=== PATIENT | male | born 1940 | race Caucasian/White ===

== ENCOUNTER 2018-04-14 05:43 | Inpatient (IN) | payer MEDICARE, OTHER ==
--- NOTE | 2018-04-01 13:47 | HP ---
HISTORY AND PHYSICAL: DATE OF ADMISSION: 04/14/18 He is coming into [facility] 04/14/18 for a left total knee replacement. CHIEF COMPLAINT: Left knee region pain and deformity. HISTORY OF PRESENT ILLNESS: The patient has had severe arthritis of the left knee for the past year and he has tried antiinflammatory medication, injection and bracing. He has been unable to be on the tennis court where he likes to be and his walking distance is less than one to two blocks. He is having difficulty with stairs and needs to use a banister and is going one at a time and his knee wakens him sometime from his sleep. The plan is for left total knee replacement. PAST MEDICAL HISTORY: 1. He has had hay fever. 2. He has never had any cancers. 3. Hypertension. 4. Mitral valve prolapse. 5. Asthma, which is not currently active. 6. The patient has early Alzheimer disease. 7. He has had some history of depression. 8. He has had skin cancers. PAST SURGICAL HISTORY: 1. Tonsillectomy. 2. Hemorrhoidectomy. 3. Ear drum surgery. 4. Appendectomy. DAILY MEDICATIONS: 1. Losartan 50 mg. 2. Hydrochlorothiazide 20 mg. 3. Low dose aspirin 81 mg. 4. Vitamin B12. 5. Herbal supplements for Alzheimer's. ALLERGIES: He is allergic to SULFA drugs, I believe he is okay Ancef. The patient has had allergy X-RAY CONTRAST MATERIAL as well. FAMILY HISTORY: Alzheimer's. SOCIAL HISTORY: He stopped smoking at age 30. Drinking, he has one glass of wine or scotch five days weekly. REVIEW OF SYSTEMS: Negative for phlebitis and pulmonary embolism. No history of fibrillation. No chest pain. No weight loss. No weakness. PHYSICAL EXAMINATION VITAL SIGNS: 68 inches in height, 188 pounds, temperature 97.8, pulse 52, blood pressure 112/76. HEENT: The head is NC/AT. LUNGS: Clear bilaterally. HEART: The heart is regular. S1, S2 normal. No murmurs or gallops. ABDOMEN: Soft and nontender, there is no organomegaly. EXTREMITIES: Walking gait shows varus of the left knee and a lateral thrust with weightbearing on the left. The left knee extension is 0, flexion is to a 6 inch heel buttock distance and on the right, his heel does go to the buttock. The left knee further has small effusion, stable MCL, LCL, Shanell and posterior drawer. The medial joint line has some tenderness, nontender anteriorly, laterally and posteriorly. MCL and LCL are stable. The thigh and calf are soft. The left dorsalis pedis pulse is 2+. No swelling of the left leg , ankle and foot. He does an easy leg raise on the left. NEUROLOGIC: Cranial nerves are grossly intact. IMAGING: X-ray of the left knee shows severe arthritis in the medial compartment with bone on bone, lateral joint widening and sclerosis in the medial compartment as well. IMPRESSION: Severe arthritis of the left knee. PLAN/RECOMMENDATIONS: Left total knee replacement. [id number]/[facility] #: [id number] MTDD
[~2018-04-14 05:43] MED LIST: Buffered Lidocaine 0.9% SYRIN* 5 ML/SYR SYRINGE INTRADERM ONE; Tranexamic Acid 1,000 MG in NS 0.9% 50 ML* (outpatient use) IV SCH
[2018-04-14] MEDS ORDERED: Famotidine IV* 10 MG/ML 2 ML (20 mg) IV ONE (06:00)
[2018-04-14] MEDS ORDERED: Acetaminophen TAB* 325 MG PO ONE (06:00)
[2018-04-14] MEDS ORDERED: Bupivacaine 0.5% W/EPI SDV* 30 ML VIAL ONE (06:49)
[2018-04-14] MEDS ORDERED: Acetaminophen TAB* 325 MG ONE (06:49)
[2018-04-14] MEDS ORDERED: Famotidine IV* 10 MG/ML 2 ML (20 mg) ONE (06:49)
[2018-04-14] MEDS ORDERED: Tranexamic Acid 1,000 MG/10 ML SDV IV ONE (06:50)
[2018-04-14] MEDS ORDERED: ceFAZolin 2 GM PREMIX in ORs 2 GM/50 ML BAG IVPB ONE (06:50)
[2018-04-14] MEDS ORDERED: Lidocaine 2% PF * 5 ML VIAL ONE ×2 (07:00→08:09)
[2018-04-14] MEDS ORDERED: Propofol* 10 MG/ML 20 ML BTL IV PUSH ONE ×2 (07:00→08:11)
[2018-04-14] MEDS ORDERED: Dexamethasone IV* 4 MG/ML 1 ML (4 MG) ONE (07:00)
[2018-04-14] MEDS ORDERED: Ondansetron INJ* 2 MG/ML VIAL ONE (07:00)
[2018-04-14] MEDS ORDERED: ROPIVACAINE 5 MG/ML 30 ML BTL (0.5%) ONE (07:00)
[2018-04-14] MEDS ORDERED: fentaNYL* 50 MCG/ML 2 ML VIAL (100 MCG VIAL) ONE (07:00)
[2018-04-14] MEDS ORDERED: Ketorolac INJ* 30 MG/ML 1 ML VIAL ONE (07:00)
[2018-04-14] MEDS ORDERED: Midazolam* 1 MG/ML 10 ML VIAL (10 MG) ONE (07:00)
[2018-04-14] MEDS ORDERED: Phenylephrine INJ* 10 MG/ML 1 ML VIAL (10 MG) ONE (07:00)
[2018-04-14] MEDS ORDERED: KETAMINE HCL* 50 MG/ML 10 ML VIAL ONE (07:00)
[2018-04-14] MEDS ORDERED: Bupivacaine 0.5% SDV PF* 30ML VIAL ONE (07:52)
[2018-04-14] MEDS ORDERED: Glycopyrrolate IV* 0.2 MG/ML 1 ML VIAL ONE (08:31)
[2018-04-14] MEDS ORDERED: Naloxone* 0.4 MG/ML 1 ML VIAL IV PRN (09:46)
[2018-04-14] MEDS ORDERED: Ondansetron INJ* 2 MG/ML VIAL IV PRN ×2 (09:46→10:47)
[2018-04-14] MEDS ORDERED: fentaNYL* 50 MCG/ML 2 ML VIAL (100 MCG VIAL) IV PRN (09:46)
[2018-04-14] MEDS ORDERED: Ondansetron ODT TAB* 4 MG PO PRN (10:47)
[2018-04-14] MEDS ORDERED: traZODone TAB* 50 MG TAB PO PRN (10:47)
[2018-04-14] MEDS ORDERED: Morphine VIAL* 4 MG/ML VIAL (1 ml vial) IV PRN (10:47)
[2018-04-14] MEDS ORDERED: diPHENhydraMINE IV* 50 MG/ML 1 ml VIAL (BENADRYL) IV PRN (10:47)
[2018-04-14] MEDS ORDERED: Cyclobenzaprine TAB* 10 MG PO PRN (10:47)
[2018-04-14] MEDS ORDERED: oxyCODONE/Acetamin 5/325 MG* TAB PO PRN (10:47)
[2018-04-14] MEDS ORDERED: traMADol TAB* 50 MG PO PRN (10:47)
[2018-04-14] MEDS ORDERED: Magnesium Hydroxide LIQ* 30 ML UDC PO PRN (10:47)
[2018-04-14] MEDS ORDERED: LORazepam TAB(*) 0.5 MG PO PRN (11:12)
--- NOTE | 2018-04-14 12:32 | RAD ---
HISTORY: post op total knee COMPARISONS: None VIEWS: 2 , Frontal and lateral views of the left knee FINDINGS: BONE DENSITY: Normal. BONES: The patient is status post left knee arthroplasty. There is no hardware failure or osteolysis. JOINTS: The patient is status post left knee arthroplasty ALIGNMENT: There is no dislocation. SOFT TISSUES: Unremarkable. OTHER FINDINGS: None. IMPRESSION: STATUS POST LEFT KNEE ARTHROPLASTY
[2018-04-14] MEDS ORDERED: Acetaminophen TAB* 325 MG PO SCH (14:00)
[2018-04-14] MEDS: ceFAZolin 1 GM in Dextrose (*) 1 GM/50 ML BAG IVPB SCH ×2 (16:44→23:51)
[2018-04-14] MEDS: Acetaminophen TAB* 325 MG PO SCH (16:44)
[2018-04-14] MEDS: Docusate CAP* 100 MG PO SCH (20:34)
[2018-04-14] MEDS: Cholecalciferol TAB* 1000 UNITS PO SCH (20:34)
[2018-04-14] MEDS ORDERED: Magnesium Hydroxide LIQ* 30 ML UDC PO SCH (21:00)
--- NOTE | 2018-04-14 21:24 | OP ---
DATE OF OPERATION: 04/14/18 - ROOM #348 DATE OF : 40 SURGICAL CARE: Left knee. SURGEON: Leobardo Campos MD END FINDER FORMING DEPARTMENT: 1. SHANTANU Sepulveda, first assistant manager. 2. Karishma Villanueva, ophthalmic surgical assistant. ANESTHESIOLOGIST: Dr. Pardeep Lopez. ANESTHESIA: Left femoral canal block and spinal anesthetic with IV sedation. PRE-OP DIAGNOSIS: Severe arthritis of the left knee with varus malalignment. POST-OP DIAGNOSIS: Severe arthritis of the left knee with varus malalignment. OPERATIVE PROCEDURE: Left total knee replacement. OPERATIVE INDICATIONS: Severe left knee arthritis with varus. He has had this for several years. He has been unable to get on the tennis court and do daily walking activities that he enjoys doing and the knee replacement was recommended. COMPONENTS UTILIZED: Omayra Persona knee. All components cemented with a size 9 femur, a 35 patella, a size F tibia, and a 10 articular surface. COMPLICATIONS: There were no complications. DRAINS: There were no drains. ESTIMATED BLOOD LOSS: 200 mL. REPLACEMENT: Crystalloid fluids. DESCRIPTION OF PROCEDURE: The patient was brought to the operating room and placed on the operating room table in a supine position following the administration of the left femoral canal block by Dr. oLpez and the patient was placed in a seated position for administration of the spinal anesthetic, then returned to the supine position. A Bourgeois catheter was inserted. The left proximal thigh was wrapped with a tourniquet. The left knee was noted to have a slight flexion contracture. The left leg was given a preliminary chlorhexidine prep after wrapping with a proximal thigh tourniquet and then a formal ChloraPrep from the tourniquet to the tips of the toes. After prepping, draping, and sealing off, we did our universal protocol time-out confirming Martin Vidal and a plan for left total knee replacement. We all agreed and we proceeded. The surgery was done without tourniquet until we got to the clean up and cementing phase of the case. The surgery was done with the hip and knee flexed and the left foot on a padded foot piece. The skin incision went from the medial aspect of the tibial tubercle to 2 fingerbreadths proximal to the superior pole of the patella entering the knee medial parapatellar, dividing the quadriceps tendon at the junction of the rectus femoris and the vastus medialis tendon staying as close to vastus medialis muscle as possible. The anteromedial soft tissues on the tibia were elevated down to the tibia just medial to the tibial tubercle and the medial tissues were elevated subperiosteally going around to the deep MCL and under the posteromedial corner of the knee. The superficial MCL was released some with a periosteal elevator going distally underneath it to relieve some tightness in the medial compartment. The knee had clear goldish synovial fluid. The knee was completely eburnated of medial femoral condyle, medial tibial plateau. There was some scooping out of the medial tibial plateau, osteophytes medial condyle, intercondylar. The remains of the posterior horn medial meniscus were excised. Patellar synovectomy was completed. The ACL and PCL were uplifted from their femoral origins after removal of the intercondylar osteophytes and then the tibia was made so that it could be subluxated forward from under the femur. The ACL and PCL were uplifted from their femoral origins once the tibia came forward and the PCL was excised and carefully hemostasis was checked and achieved posteriorly. Lateral meniscectomy was completed and then we paid attention to the periphery of the lateral meniscus mid and anteriorly where the lateral geniculates run parallel. The distal anterior femur was exposed subperiosteally for referencing and measuring. At this point, we made our proximal tibial cut our goal and the tibial cut was to have a tibial surface that would be perpendicular to the long axis of the tibia and have a slight posterior slope removing a millimeter or two medially and a centimeter laterally. The tibial cut was satisfactory. Attention was turned to the femur. The intramedullary drill was utilized. The femoral canal was suctioned to discourage embolization. The femoral cutting guide was applied on #1 with 6 degrees of valgus and the distal cut was completed on the femur and the extension gap was very satisfactory with a 10-mm block. The femur was measured for a size 9 and the chamfering, the anterior and posterior cuts were completed. We then finished removal of the posterior horn medial meniscus carefully preserving the MCL, finished removal of the PCL, the posterior horn lateral meniscus with careful hemostasis posteriorly. At this stage in flexion , we were slightly tight in the medial compartment and the MCL distally was uplifted with a periosteal elevator and this made nice ligamentous balance in 90 degrees of flexion with a 10-mm block in both compartments. The tibia was completed for a size F. The femoral canal was cleaned x6 with saline, suctioned empty, and a bone plug was inserted. The knee was then articulated and extended with the F tibia 10 articular surface and the 9 femur with full knee extension, stable ligaments in extension, and stable ligaments at 90 degrees of flexion. The patella was cut flat. A 35 was chosen. Three drill holes were made. The drill holes were undercut for optimal cement interdigitation. The leg was exsanguinated, the tourniquet elevated to 275. The knee was then cleaned in extension with pulsed saline cleaning the gutters and posteriorly with 2 to 3 L of pulsed saline. The knee was then cleaned in flexion, the bony surfaces with pulsed saline. All surfaces were dried and the cement was mixed. The components were cemented into position, the patella followed by the tibia followed by the femur. Each was impacted. Excess cement was removed and the knee was articulated and extended during the final hardening. We then checked posteriorly for retained cement. All excess cement was then carefully removed. The tourniquet was deflated. The posteromedial pericapsular tissues were infiltrated with Marcaine 0.5% with epinephrine, 15 to 20 mL posteromedially, 5 to 8 mL medially and a little bit laterally. During the closure, we put in another 5 mL of the Marcaine mixture into the joint after the joint had been closed. Careful hemostasis was checked and achieved during closure. We irrigated several times with saline. The knee was extended and flexed past 130 degrees multiple times during the closure as well. The quad mechanism closed with interrupted #1 Vicryl sutures in a figure-of- eight fashion, the same on the medial retinaculum and more distally we used 0 Vicryl. The deep fascia closed with 0 Vicryl and then the superficial subcu closed with 3-0 Vicryl and the skin closed with alina. The skin was washed and dried and covered with Betadine-soaked release, sterile gauze, sterile Webril, cryotherapy cuff, ABD pads, and an Leon bandage loosely applied. The knee alignment was very satisfactory. The knee was flexed and extended as noted during closure and the posterior tibial pulse was 2+ at the end of the case. The patient was returned to the recovery room in stable and satisfactory condition, having tolerated the procedure very well. [id number]/[facility] #: [id number] [facility]
[2018-04-15] MEDS: Acetaminophen TAB* 325 MG PO SCH ×3 (01:29→16:54)
[2018-04-15 06:20] LABS: Hematocrit 28 % (42-52)
[2018-04-15 06:45] LABS: EGFR Non-African American 96.5 (>60)
[2018-04-15] MEDS: ceFAZolin 1 GM in Dextrose (*) 1 GM/50 ML BAG IVPB SCH (07:51)
--- NOTE | 2018-04-15 08:07 | PN ---
Progress Note - Progress Note Date of Service: 04/15/18 Note: POD 1 VSStable, I&O satisfactory. Hc 28%. Awake, responsive, Cooperative and some confusion. Breathing without difficulty. Left knee dressing is dry. He can extend the left knee to 0 degrees and flex to 90 degrees without complaint. No left foot swelling and he easily does a straight leg raise left. Potassium is 3.6 and on HCTZ IMP: Stable. Needs potassium. Acute blood loss anemia. He may end up bending his knee too much due to his lack of awareness, may need a knee immobilizer so he rests his knee mmore in these first feew days, especially since we know he is flexing easily to 90.
[2018-04-15] MEDS ORDERED: Losartan TAB* 25 MG PO SCH ×2 (09:00→09:41)
[2018-04-15] MEDS ORDERED: Hydrochlorothiazide TAB* 25 MG PO SCH ×2 (09:00→09:40)
[2018-04-15] MEDS: Aspirin TAB* 325 MG PO SCH (09:15)
[2018-04-15] MEDS: Potassium Chlor TAB* 20 MEQ TAB.ER PO SCH ×2 (09:15→21:01)
[2018-04-15] MEDS: Cholecalciferol TAB* 1000 UNITS PO SCH ×2 (09:15→21:00)
[2018-04-15] MEDS: Docusate CAP* 100 MG PO SCH ×2 (09:15→21:01)
[2018-04-15] MEDS: Vitamin THERAPEUTIC TAB PO SCH (09:15)
[2018-04-16] MEDS: Acetaminophen TAB* 325 MG PO SCH ×2 (01:00→07:57)
[2018-04-16 06:37] LABS: Hematocrit 33 % (42-52); Hemoglobin 11.2 g/dl (14.0-18.0)
[2018-04-16] MEDS: Docusate CAP* 100 MG PO SCH (07:57)
[2018-04-16] MEDS: Aspirin TAB* 325 MG PO SCH (07:57)
[2018-04-16] MEDS: Potassium Chlor TAB* 20 MEQ TAB.ER PO SCH (07:57)
[2018-04-16] MEDS: Vitamin THERAPEUTIC TAB PO SCH (07:57)
[2018-04-16] MEDS: Cholecalciferol TAB* 1000 UNITS PO SCH (07:57)
--- NOTE | 2018-04-16 10:11 | PN ---
Progress Note - Progress Note Date of Service: 04/16/18 SOAP: Subjective: [] Patient seen and examined OOB in chair. He has minimal pain of the left knee. He has a history of Alzheimers and has some difficulty following instruction in that he will hold his walker up in the air while walking, and does not restrict his knee ROM as he has no pain. Denies chest pain, shortness of breath, dizziness or nausea. Per discussion with nursing yesterday his felt his mentation was back to baseline and she was comfortable bringing him home. Objective: []General:W ell appearing, NAD LLE: Left knee dressing changed. Dressing soaked through with blood but no current bleeding. Incision is clean, dry and intact. ROM with dressing off was 5 -approx 110 without any obvious pain. Able to straight leg raise. Thigh is soft. DF/PF intact, Sensation intact distally. DP2+, capillary refill less than two seconds distally. Calves are supple and nontender without erythema, edema or palpable cords Assessment: []POD 2 sp left total knee arthroplasty Plan: []WBAT PT/OT. Pt walked the unit without a walker today and was deemed to be safe. Knee immobilizer while in bed for another 3 days. Patient has very good ROM, During his exam I limit patients flexion as he was willing to pass even 110 without hesitation. He only reached 78 degrees with PT, so it seems with his dressing on he does restrict his ROM more which is appropriate. Plan for DC home today as long as patients feels comfortable Vital Signs Temp 97.4 F 04/16/18 07:31 Pulse 56 04/16/18 07:31 Resp 17 04/16/18 08:00 BP 151/67 04/16/18 07:31 Pulse Ox 100 04/16/18 08:00 Intake & Output 04/15/18 04/16/18 04/16/18 18:59 06:59 18:59 Intake Total 2763 840 Output Total 375 0 Balance 2388 840 Intake: IV Fluids 1403 LR 1403 IVPB 110 LR 110 Oral 1250 840 Output: Urine 375 0 Other: Estimated Void Large Date of Last Bowel 04/15/18 Movement # Bowel Movements 1 Estimated Stool Amount Large # Voids 2 Laboratory Last Values Hgb 11.2 g/dl (14.0-18.0) L 04/16/18 06:16 Hct 33 % (42-52) L 04/16/18 06:16 Sodium 137 mmol/L (135-145) 04/15/18 05:49 Potassium 3.6 mmol/L (3.5-5.0) 04/15/18 05:49 Chloride 103 mmol/L (101-111) 04/15/18 05:49 Carbon Dioxide 30 mmol/L (22-32) 04/15/18 05:49 Anion Gap 4 mmol/L (2-11) 04/15/18 05:49 BUN 16 mg/dL (6-24) 04/15/18 05:49 Creatinine 0.78 mg/dL (0.67-1.17) 04/15/18 05:49 Est GFR ( Amer) 116.8 (>60) 04/15/18 05:49 Est GFR (Non-Af Amer) 96.5 (>60) 04/15/18 05:49 BUN/Creatinine Ratio 20.5 (8-20) H 04/15/18 05:49 Glucose 93 mg/dL (70-100) 04/15/18 05:49 Calcium 8.5 mg/dL (8.6-10.3) L 04/15/18 05:49
[2018-04-16 14:38] VITALS: BP 156/75
--- NOTE | 2018-04-17 06:50 | DS ---
AMENDED REPORT NOW INCLUDES DATE OF DISCHARGE AND DESIGNATED COSIGNER ESIGNED BEFORE ADJUSTMENTS DISCHARGE SUMMARY: DATE OF ADMISSION: 04/14/18 DATE OF DISCHARGE: 04/16/18 PROVIDER: Dr. Leobardo Campos.* (DICTATED BY SHANTANU IVY) ASSISTANTS: SHANTANU Sepulveda and Karishma Villanueva cath laboratory technician. PRE-OP DIAGNOSIS: Severe arthritis of the left knee with varus malalignment. OPERATIVE PROCEDURE: Left total knee replacement. OPERATIVE INDICATION: Severe left knee arthritis with varus angulation for several years. He has been unable to get on the tennis court and do daily walking activities that he enjoys and a knee replacement was recommended. HOSPITAL COURSE: The patient was admitted to [facility] on . He underwent a left total knee replacement without complications. Postop day 1, awake and responsive, cooperative with some confusion. Left knee dressing was dry. Able to extend the left knee 0 degrees and flex to 90 degrees without complaint. No foot swelling. Easily did a straight leg raise. There was concern that due to lack of awareness, he may end up bending his knee too much. If he is bending his knee without regard for careful range of motion, he needs an immobilizer for the first few days while he is not working with physical therapy. Postop day 2, he is well appearing, in no acute distress, sitting comfortably in a chair, dressing was changed. Dressing was soaked through with blood but no current bleeding. Incision clean, dry, and intact. Range of motion with dressing off was 5 to approximately 110 degrees without any obvious pain. I had to stop the patient at 110 degrees, so he did not bend further. Able to straight leg raise. Thigh is soft. Dorsiflexion and plantar flexion intact. Sensation intact distally. 2+ dorsalis pedis pulse. Capillary refill less than 2 seconds distally. Discharge vital signs: Temperature 97.4, pulse 56, respiratory rate 17, pulse ox 100%. Hemoglobin 11.2, hematocrit 33. Sodium 137 and potassium 3.6. DISCHARGE MEDICATIONS: 1. Aspirin 81 mg daily. This is to be resumed after the patient is off the aspirin 325 mg daily. So, he will be on the aspirin 325 daily for 30 days and then he will resume his aspirin 81 mg tab. 2. Hydrochlorothiazide 25 mg p.o. q.a.m. 3. Losartan 50 mg p.o. q.a.m. 4. Riboflavin, B6, folate, B12 one tab p.o. b.i.d. 5. Cholecalciferol 5000 units p.o. b.i.d. 6. Vital Nutrients calcium, iodine 1 tab p.o. b.i.d. 7. ProOmega 1 tab p.o. daily. 8. Neuro-Mag Magnesium L-Threonate 1 tab p.o. b.i.d. 9. Cytoplan Bacopa Monnieri 1 tab p.o. b.i.d. 10. Ashwagandha 500 mcg p.o. b.i.d. 11. Docusate 100 mg p.o. b.i.d. p.r.n. 12. Tramadol 50 mg p.o. q.6 hours p.r.n. 13. Acetaminophen 975 mg p.r.n. DISCHARGE PLAN: Aspirin 325 mg daily for 30 days to prevent blood clots. Hold your 81 mg tab while you are on this higher dose. Resume at the end of 30 days when you discontinue the 325 mg dose. Pain control: Tramadol 50 mg 1 to 2 tabs every 4 to 6 hours as needed for pain, max daily dose of 8 per day. Follow up with Dr. Campos in 4 to 6 weeks. Please take caution with knee flexion as the patient is having no pain and has a history of Alzheimer's. I have suggested that he bend safely to 90 degrees and he can go little bit further, maybe to about 110 degrees or so, but at least for several days, please restrict range of motion beyond that. DISPOSITION: The patient is discharged to home. SHANTANU FOWLER [id number]/[facility] #: [id number] MTDD
== END 2018-04-16 16:30 | disposition home health service (06) | DRG 470 ==
LOC: AA 06:24 → SSU 13:06
PROVIDERS: ADMIT Orthopaedic Surgery; ATTEND Orthopaedic Surgery
PROC: 0SRD0J9 Replacement of Left Knee Joint with Synthetic Substitute, Cemented, Open Approach (ICD-10-PCS; principal; 2018-04-14 07:30)
DX: M17.12 Unilateral primary osteoarthritis, left knee (principal); D62 Acute posthemorrhagic anemia; M21.162 Varus deformity, not elsewhere classified, left knee; I10 Essential (primary) hypertension; G30.0 Alzheimer's disease with early onset; F02.80 Dementia in other diseases classified elsewhere, unspecified severity, without behavioral disturbance, psychotic disturbance, mood disturbance, and anxiety; J45.909 Unspecified asthma, uncomplicated; M25.462 Effusion, left knee; G43.909 Migraine, unspecified, not intractable, without status migrainosus; J37.0 Chronic laryngitis; M25.762 Osteophyte, left knee; F32.9 Major depressive disorder, single episode, unspecified; I34.1 Nonrheumatic mitral (valve) prolapse; R41.0 Disorientation, unspecified; Z82.0 Family history of epilepsy and other diseases of the nervous system; Z87.891 Personal history of nicotine dependence; Z88.2 Allergy status to sulfonamides; Z85.828 Personal history of other malignant neoplasm of skin; Z91.041 Radiographic dye allergy status; Z72.89 Other problems related to lifestyle; Z79.82 Long term (current) use of aspirin
CPT/HCPCS: 36415; 80048; 85014; 85018; 88305; 88311; A9270-GY; G8978-GP-CL; G8979-GP-CI; G8987-GO-CJ; G8988-GO-CI; J0690; J1100; J1885; J2250; J2405; J2704; J2795; J3010

== ENCOUNTER 2019-03-29 15:00 | Emergency (ER) | payer MEDICARE, OTHER ==
[2019-03-29 15:22] VITALS: BP 170/92
--- NOTE | 2019-03-29 15:57 | UC ---
Dizzy HPI HPI Summary: The patient is a 78-year-old male who suffers from Alzheimer's disease who presents here with a 6 month history of intermittent dizziness. He and his concur that it generally occurs in the morning when he first gets up or during the night if he gets up to urinate. He feels very unsteady on his feet and it takes him a while to catch his balance. He has not had any falls. He denies any headaches. He states that when he gets this dizziness his symptoms are worsened by changing head position or if he looks from side to side. Generally his symptoms last minutes and occasionally sometimes up to an hour. Today his symptoms have been worse than normal and have been on and off for about 8 hours. He states that when he was seated on the toilet it appeared like his floor was moving. He also turned his head suddenly and it appeared as though the wall was undulating. Currently he feels back to his normal self. He denies any chest pain or shortness of breath. He denies any palpitations. He denies any fever or chills. He denies any URI symptoms. He denies any ear pain or roaring in the ears. 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 - History Of Current Complaint Chief Complaint: UCDizziness Stated Complaint: DIZZINESS Time Seen by Provider: 03/29/19 15:26 Hx Obtained From: Patient Onset/Duration: Sudden Onset, Lasting Minutes Timing: Intermittent Episode Lasting - minutes to an hour x 6 mos Severity Initially: Mild Severity Currently: None Pain Intensity: 0 Pain Scale Used: 0-10 Numeric Character: Room Spinning, Dizzy Aggravating Factor(s): Position Change, Change In Head Position Alleviating Factor(s): Other - spontaneously resolve Associated Signs And Symptoms: Positive: Unsteady Gait. Negative: Nausea, Vomiting, Diaphoresis, Tinnitus, Chest Pain, SOB, Palpitations, Visual Changes, Decreased Oral Intake, Change In Medication, Change In Diet, OTC Medications - Allergies/Home Medications Allergies/Adverse Reactions: Allergies Allergy/AdvReac Type Severity Reaction Status Date / Time Iodinated Contrast Media Allergy Vomiting Verified 03/29/19 15:22 [Iodinated Contrast- Oral and IV Dye] Penicillins Allergy Unknown Verified 03/29/19 15:22 Reaction Details Sulfa (Sulfonamide Allergy Unknown Verified 03/29/19 15:22 Antibiotics) Reaction Details Contrast Dye Allergy Vomiting Uncoded 03/29/19 15:22 marker dye Allergy Vomiting Uncoded 03/29/19 15:22 PMH/Surg Hx/FS Hx/Imm Hx Previously Healthy: Yes Endocrine History: Dyslipidemia Cardiovascular History: Hypertension Neurological History: Dementia Other History Of: Negative For: Anticoagulant Therapy - Surgical History Surgical History: Yes Surgery Procedure, Year, and Place: TONSILS. melanoma removed from face and R arm, APPENDIX - Family History Known Family History: Positive: Hypertension - Social History Alcohol Use: Occasionally Alcohol Amount: varies Substance Use Type: None Smoking Status (MU): Former Smoker Amount Used/How Often: X 12 YEARS Have You Smoked in the Last Year: No When Did the Patient Quit Smoking/Using Tobacco: AGE 30 - Immunization History Most Recent Influenza Vaccination: 03/25/2018 Most Recent Tetanus Shot: unknown Most Recent Pneumonia Vaccination: has received Review of Systems All Other Systems Reviewed And Are Negative: Yes Constitutional: Positive: Negative Skin: Positive: Negative Eyes: Positive: Negative ENT: Positive: Negative Respiratory: Positive: Negative Cardiovascular: Positive: Negative Gastrointestinal: Positive: Negative Genitourinary: Positive: Negative Motor: Positive: Negative Neurovascular: Positive: Negative Musculoskeletal: Positive: Negative Neurological: Positive: Negative Psychological: Positive: Negative Physical Exam Triage Information Reviewed: Yes Appearance: Well-Appearing, No Pain Distress, Well-Nourished Vital Signs: Initial Vital Signs Temp 98.7 F 03/29/19 15:13 Pulse 48 03/29/19 15:13 Resp 18 03/29/19 15:13 BP 170/92 03/29/19 15:13 Pulse Ox 99 03/29/19 15:13 Eye Exam: Normal Eyes: Positive: Conjunctiva Clear, Other: - no nystagmus, eomi/perrl ENT: Negative: Hearing grossly normal, TMs normal - R lg perf, left unable to vis due to cerumen Neck: Positive: Supple, Nontender, No Lymphadenopathy Respiratory: Positive: Lungs clear, Normal breath sounds, No respiratory distress Cardiovascular: Positive: RRR, No Murmur, Bradycardia Musculoskeletal: Positive: ROM Intact, No Edema Neurological: Positive: Alert, Muscle Tone Normal, Other: - neg Finger nose finger, neg ponator drift, neg ataxia Diagnostics - Radiology No standard instances Radiology Interpretation Completed By: Radiologist Summary of Radiographic Findings: CT BRAIN: IMPRESSION: Chronic ischemic White matter change with no evidence of intracranial mass or hemorrhage. - EKG Cardiac Rate: Bradycardia Cardiac Rhythm: Sinus: Normal Ectopy: None ST Segment: Normal Dizzy Course/Dx - Differential Dx/Diagnosis Provider Diagnosis: BPPV (benign paroxysmal positional vertigo), Sinus bradycardia Discharge ED - Sign-Out/Discharge Documenting (check all that apply): Patient Departure All imaging exams completed and their final reports reviewed: Yes - Discharge Plan Condition: Stable Disposition: HOME Patient Education Materials: Benign Paroxysmal Positional Vertigo (ED) Referrals: Jesus Lion MD [Primary Care Provider] - As Soon As Possible Additional Instructions: change positions slowly I suggest you see your MD in follow up first available appt - Billing Disposition and Condition Condition: STABLE Disposition: Home
== END 2019-03-29 16:53 | disposition home or self-care (01) ==
LOC: UCEAST 15:00
DX: H81.10 Benign paroxysmal vertigo, unspecified ear (principal); R00.1 Bradycardia, unspecified; G30.9 Alzheimer's disease, unspecified; F02.80 Dementia in other diseases classified elsewhere, unspecified severity, without behavioral disturbance, psychotic disturbance, mood disturbance, and anxiety; I10 Essential (primary) hypertension; Z91.041 Radiographic dye allergy status; Z88.8 Allergy status to other drugs, medicaments and biological substances; Z88.2 Allergy status to sulfonamides; Z87.891 Personal history of nicotine dependence
CPT/HCPCS: 70450; 93005; 99212; G0463

== ENCOUNTER 2024-04-27 08:16 | Observation (INO) ==
[2024-04-27 09:53] LABS: ABS Eosinophils 0.1 10^3/uL (0.0-0.5); ABS Lymphocytes 0.9 10^3/uL (1.0-4.8); ABS Monocytes 0.4 10^3/uL (0.0-1.1); ABS Neutrophils 5.4 10^3/uL (1.5-7.6); Eosinophil % 1.1 %; Hemoglobin 12.5 g/dL (13.2-16.3); Lymphocyte % 12.7 %; Mean Corpuscular Hemoglobin 32.2 pg (27-33); Mean Corpuscular Hgb Conc 33.7 g/dL (31-36); Mean Corpuscular Volume 95.5 fL (80-97); Mean Platelet Volume 8.6 fL (7.5-11.2); Platelet Count 194 10^3/uL (150-450); Red Blood Count 3.88 10^6/uL (4.06-5.63); Red Cell Distribution Width 13.2 % (12-17); White Blood Count 6.8 10^3/uL (3.6-10.2)
[2024-04-27 10:41] LABS: Albumin/Globulin Ratio 1.7 (1-3); Calcium 8.7 mg/dL (8.6-10.3); Creatinine, Serum 1.2 mg/dL (0.67-1.17); Globulin 2.3 g/dL (2-4); Potassium 4.3 mmol/L (3.5-5.0); Total Protein 6.3 g/dL (6.4-8.9)
[2024-04-27] MEDS: Lidocaine 1% MPF 5 ML VIAL INJ ONE (11:07)
[2024-04-28 07:03] LABS: ABS Eosinophils 0.1 10^3/uL (0.0-0.5); ABS Lymphocytes 1.2 10^3/uL (1.0-4.8); ABS Monocytes 0.5 10^3/uL (0.0-1.1); ABS Neutrophils 3.7 10^3/uL (1.5-7.6); Eosinophil % 2.3 %; Hematocrit 35.1 % (38-53); Hemoglobin 12.1 g/dL (13.2-16.3); Lymphocyte % 21.8 %; Mean Corpuscular Hemoglobin 32.9 pg (27-33); Mean Corpuscular Hgb Conc 34.6 g/dL (31-36); Mean Corpuscular Volume 95.2 fL (80-97); Mean Platelet Volume 8.5 fL (7.5-11.2); Platelet Count 188 10^3/uL (150-450); Red Blood Count 3.69 10^6/uL (4.06-5.63); Red Cell Distribution Width 13.2 % (12-17); White Blood Count 5.6 10^3/uL (3.6-10.2)
[2024-04-28 08:00] LABS: Calcium 8.9 mg/dL (8.6-10.3); Creatinine, Serum 1.09 mg/dL (0.67-1.17); Magnesium 2.1 mg/dL (1.9-2.7); Potassium 3.8 mmol/L (3.5-5.0); eGFR CKD-EPI 67.3 (>60)
[2024-04-29 06:15] VITALS: BP 136/80
[2024-04-29 09:25] LABS: ABS Basophils 0.1 10^3/uL (0.0-0.1); ABS Eosinophils 0.2 10^3/uL (0.0-0.5); ABS Lymphocytes 1.1 10^3/uL (1.0-4.8); ABS Monocytes 0.4 10^3/uL (0.0-1.1); ABS Neutrophils 4.3 10^3/uL (1.5-7.6); Eosinophil % 2.6 %; Hematocrit 37.9 % (38-53); Lymphocyte % 17.8 %; Mean Corpuscular Hemoglobin 32.4 pg (27-33); Mean Corpuscular Hgb Conc 34.4 g/dL (31-36); Mean Corpuscular Volume 94.3 fL (80-97); Mean Platelet Volume 8.8 fL (7.5-11.2); Nucleated Red Blood Cells % 0.1 %/100WBC (0.0-0.8); Platelet Count 201 10^3/uL (150-450); Red Blood Count 4.02 10^6/uL (4.06-5.63); Red Cell Distribution Width 13.4 % (12-17)
== END 2024-04-29 13:53 ==
LOC: EDHOLD 08:16 → ED 08:16 → MEDTELE 13:50
PROVIDERS: ADMIT Internal Medicine; ATTEND Internal Medicine